=== PATIENT | male | born 1955 | race Hispanic/Latino ===

== ENCOUNTER 2021-04-17 22:21 | Emergency (ER) | payer OTHER ==
[~2021-04-17] VITALS: Ht 182.9 cm; Wt 89.4 kg
[2021-04-17 22:41] LABS: BASOPHILS % (AUTO) 0.6 % (0.0-5.0); EOSINOPHILS % (AUTO) 0.4 % (0.0-8.0); HEMATOCRIT 47.8 % (42-54); MEAN CORPUSCULAR HGB CONC 32.4 g/dL (32.0-36.0); MEAN CORPUSCULAR VOLUME 86.3 fL (79-99); MONOCYTES % (AUTO) 9.7 % (3.0-13.0); NEUTROPHILS % (AUTO) 81.8 % (40.0-77.0); PLATELET COUNT (AUTO) 282 K/uL (130-400); RED BLOOD CELL COUNT(AUTO) 5.54 MIL/uL (4.50-6.20); WHITE BLOOD COUNT (AUTO) 17.5 K/uL (4.8-10.8)
[2021-04-17 22:50] LABS: CREATININE 1.2 mg/dL (0.5-1.5); POTASSIUM 4.3 mmol/L (3.5-5.1)
[2021-04-17 22:55] LABS: INR 1.05 (0.85-1.15); PROTHROMBIN TIME 11.4 SEC (9.6-11.6)
[2021-04-17 22:56] LABS: PARTIAL THROMBOPLASTIN TIME 27.6 SEC (26.3-35.5)
[2021-04-17] MEDS ORDERED: ATOR40TA69 PO (22:57)
[2021-04-17] MEDS ORDERED: TICA90TA PO (22:57)
[2021-04-17] MEDS ORDERED: HYDR-3421 PO (22:57)
[2021-04-17] MEDS ORDERED: METO-408 PO (22:57)
[2021-04-17] MEDS ORDERED: ZOSYN 3.375GM +NS 50ML IV SCH (23:02)
[2021-04-17 23:13] LABS: B-TYPE NATRIURETIC PEPTIDE 73 pg/mL (0-100)
[2021-04-17 23:15] LABS: ALBUMIN 4.1 g/dL (3.5-5.0); BILIRUBIN,TOTAL 0.4 mg/dL (0.2-1.0); MAGNESIUM 2.1 mg/dL (1.80-2.40); TOTAL PROTEIN, SERUM 7.6 g/dL (6.0-8.3)
[2021-04-17] MEDS ORDERED: ACETAMINOPHEN 500 MG TABLET ONE (23:17)
[2021-04-18 00:02] LABS: APPEARANCE,URINE Cloudy (CLEAR); BILIRUBIN,URINE Negative (NEGATIVE); COLOR,URINE Yellow (YELLOW); GLUCOSE, URINE (UA) Negative (NEGATIVE); KETONES,URINE Trace mg/dL (NEGATIVE); LEUKOCYTE ESTERASE ,URINE Large (NEGATIVE); NITRATE,URINE Positive (NEGATIVE); OCCULT BLOOD,URINE Small (NEGATIVE); PH,URINE 5.5 (5.0-8.0); PROTEIN,URINE Negative (NEGATIVE)
[2021-04-18 00:21] LABS: BACTERIA,URINE Many /HPF (None Seen); MUCUS,URINE Few LPF (None Seen); WBC,URINE 26-50 /HPF (0-1)
[2021-04-18] MEDS ORDERED: LEVOFLOXACIN 750 MG/D5W 150 ML 150 ML IV STA (02:58)
[2021-04-18] MEDS ORDERED: LEVO750T46 PO (03:04)
[2021-04-18 04:03] VITALS: BP 105/61
== END 2021-04-18 04:10 | disposition home or self-care (01) ==
LOC: EDH 22:21
DX: N39.0 Urinary tract infection, site not specified (principal); Z95.0 Presence of cardiac pacemaker; Z79.899 Other long term (current) drug therapy
CPT/HCPCS: 36415; 71045; 80053; 81001; 82550; 83605; 83735; 83874; 83880; 84484; 85025; 85610; 85730; 87040 ×2; 87077; 87088; 87186; 93005; 96365; 96367; 99285; J1956; J2543